=== PATIENT | male | born 1955 | race African-American/Black ===

== ENCOUNTER 2017-11-09 13:56 | Inpatient (IN) | payer MEDICAID ==
[~2017-11-09] VITALS: Ht 335.3 cm; Wt 68.9 kg
[2017-11-09 14:40] LABS: CHLORIDE 98 mEq/L (98-107)
[2017-11-09 14:43] LABS: BASOPHILS % 0.8 % (0.0-2.0); EOSINOPHILS % 0.3 % (0.0-5.0); HEMOGLOBIN. 11.4 g/dL (14.0-18.0); LYMPHOCYTES % 48.4 % (20.0-50.0); MEAN CORPUSCULAR HEMOGLOBIN 36.7 pg (28.0-32.0); MEAN PLATELET VOLUME 9.8 fl (7.4-10.4); MONOCYTES % 10.3 % (2.0-8.0); NEUTROPHILS % 40.2 % (40.0-76.0); RED BLOOD CELL COUNT 3.12 mill/uL (4.7-6.1); RED CELL DISTRIBUTION WIDTH 13.4 % (11.6-14.6)
[2017-11-09 14:44] LABS: INR 1.7; PROTHROMBIN TIME 17.8 sec (9.4-11.6)
[2017-11-09 14:47] LABS: PLATELET 30 x1000/uL (130-400)
[2017-11-09 14:59] LABS: ETHANOL BLOOD 370 mg/dL
[2017-11-09 15:05] LABS: PLATELET ESTIMATE MARKEDLY DECREASED
[2017-11-09] MEDS ORDERED: SODIUM CHLORIDE 0.9% 1,000 ML IV SCH (18:05)
[2017-11-09] MEDS ORDERED: CLONIDINE 0.1MG TABLET PO PRN (18:15)
[2017-11-09] MEDS ORDERED: IPRATROPIUM/ALBUTEROL 0.5-3(2.5)MG/3ML NEB INH PRN (18:15)
[2017-11-09] MEDS ORDERED: DOCUSATE SODIUM 100MG CAPSULE PO PRN (18:15)
[2017-11-09] MEDS ORDERED: LORAZEPAM 0.5MG TABLET PO PRN (18:15)
[2017-11-09] MEDS ORDERED: ACETAMINOPHEN 325MG TABLET PO PRN (18:15)
[2017-11-09] MEDS ORDERED: ONDANSETRON HCL 4MG/2ML VIAL IV PRN (18:15)
[2017-11-09] MEDS ORDERED: DIPHENHYDRAMINE 50MG/ML VIAL IV PRN (18:15)
[2017-11-09] MEDS ORDERED: NITROGLYCERIN 0.4MG TABLET SL SL PRN (18:15)
[2017-11-09] MEDS ORDERED: GUAIFENESIN 200MG/10ML SUGAR FREE UDC PO PRN (18:15)
[2017-11-09] MEDS ORDERED: MAGNESIUM/ALUMINUM HYDROXIDE/SIMETHICONE 30ML UDC PO PRN (18:15)
[2017-11-09] MEDS ORDERED: MVI, ADULT NO.1 10 ML, FOLIC ACID 1 MG, THIAMINE HCL 100 MG in SODIUM CHLORIDE 0.9% 1,0... IV ONE ×4 (18:45)
[2017-11-09] MEDS ORDERED: KETOROLAC 15MG/ML VIAL IV PRN (19:30)
[2017-11-09 20:00] VITALS: BP 97/55
[2017-11-09 20:05] VITALS: BP 99/55
[2017-11-09] MEDS ORDERED: NA PHOS,M-B/NA PHOS,DI-BA ENEMA 118ML PR PRN (21:00)
[2017-11-09] MEDS: FAMOTIDINE 20MG TABLET PO SCH (23:03)
[2017-11-10] VITALS (7 sets, daily range): BP systolic 105–154; BP diastolic 57–79
[2017-11-10] MEDS: SODIUM CHLORIDE 0.9% 1,000 ML IV SCH ×2 (05:23→15:00)
[2017-11-10 07:17] LABS: CREATINE KINASE 186 IU/L (39-308)
[2017-11-10 07:18] LABS: CREATINE KINASE MB FRACTION 1.8 ng/mL (0.5-3.6)
[2017-11-10] MEDS: FAMOTIDINE 20MG TABLET PO SCH (09:02)
[2017-11-10] MEDS ORDERED: LACTULOSE 20G/30ML UDC PO SCH (14:00)
== END 2017-11-10 17:01 | disposition home or self-care (01) | DRG 204 ==
LOC: ER 13:58 → OBSVTOIN 16:17 → 8WST 16:17 → EDBEDREQ 16:18 → EDBEDREQTM 16:18 → ENRESERV 18:52
PROVIDERS: ADMIT Internal Medicine; ATTEND Internal Medicine
DX: R55 Syncope and collapse (principal); E43 Unspecified severe protein-calorie malnutrition; D61.818 Other pancytopenia; D68.9 Coagulation defect, unspecified; E87.1 Hypo-osmolality and hyponatremia; E83.51 Hypocalcemia; K74.60 Unspecified cirrhosis of liver; F10.129 Alcohol abuse with intoxication, unspecified; I10 Essential (primary) hypertension; S00.03XA Contusion of scalp, initial encounter; W18.39XA Other fall on same level, initial encounter; Y93.89 Activity, other specified; Y92.89 Other specified places as the place of occurrence of the external cause; Y99.8 Other external cause status; Z68.1 Body mass index [BMI] 19.9 or less, adult
CPT/HCPCS: 36415; 70450; 71045; 80053; 82550; 82553; 83036; 83880; 84484; 85025; 85610; 93005; 93970; 96374; 99285; C1893; G0378; G0482; J3411; J3490; J7030

== ENCOUNTER 2018-12-16 10:04 | Emergency (ER) | payer MEDICAID ==
[~2018-12-16] VITALS: Ht 180.3 cm; Wt 73.0 kg
[2018-12-16] MEDS ORDERED: SODIUM CHLORIDE 0.9% 1,000 ML IV ONE (10:22)
[2018-12-16] MEDS ORDERED: CHLORDIAZEPOXIDE 25MG CAPSULE PO ONE ×2 (10:30→16:15)
[2018-12-16 11:19] LABS: HEMATOCRIT. 38.8 % (42.0-52.0); HEMOGLOBIN. 12.9 g/dL (14.0-18.0); MEAN CORPUSCULAR HEMOGLOBIN 32.2 pg (28.0-32.0); MEAN CORPUSCULAR VOLUME 96.5 fL (80.0-94.0); MEAN PLATELET VOLUME 9.2 fl (7.4-10.4); RED BLOOD CELL COUNT 4.01 mill/uL (4.7-6.1); RED CELL DISTRIBUTION WIDTH 15.5 % (11.6-14.6)
[2018-12-16 11:21] LABS: CHLORIDE 99 mEq/L (98-107)
[2018-12-16 11:31] LABS: PLATELET 28 x1000/uL (130-400)
[2018-12-16 11:52] LABS: ETHANOL BLOOD 341 mg/dL
[2018-12-16 11:57] LABS: PLATELET ESTIMATE MARKEDLY DECREASED
[2018-12-16 17:45] VITALS: BP 105/78
== END 2018-12-16 17:45 | disposition home or self-care (01) ==
LOC: ER 10:04
DX: T51.0X1A Toxic effect of ethanol, accidental (unintentional), initial encounter (principal); R55 Syncope and collapse; G40.909 Epilepsy, unspecified, not intractable, without status epilepticus; I11.0 Hypertensive heart disease with heart failure; I50.9 Heart failure, unspecified; D69.6 Thrombocytopenia, unspecified; Y90.8 Blood alcohol level of 240 mg/100 ml or more; V18.0XXA Pedal cycle driver injured in noncollision transport accident in nontraffic accident, initial encounter; Y92.488 Other paved roadways as the place of occurrence of the external cause
CPT/HCPCS: 36415; 80053; 80320; 85025; 93005; 99284; J7030; G0480

== ENCOUNTER 2019-01-13 14:11 | Inpatient (IN) | payer MEDICAID ==
[~2019-01-13] VITALS: Ht 175.3 cm; Wt 55.1 kg
[2019-01-13] MEDS ORDERED: ASPI-1393 PO (14:23)
[2019-01-13] MEDS ORDERED: CARV3.1242 PO (14:26)
[2019-01-13] MEDS ORDERED: FURO20TA4 PO (14:26)
[2019-01-13] MEDS ORDERED: ATOR40TA70 PO (14:26)
[2019-01-13 15:22] LABS: BASOPHILS % 1.3 % (0.0-2.0); EOSINOPHILS % 0.6 % (0.0-5.0); HEMATOCRIT. 28.5 % (42.0-52.0); HEMOGLOBIN. 9.7 g/dL (14.0-18.0); LYMPHOCYTES % 39.9 % (20.0-50.0); MEAN CORPUSCULAR HEMOGLOBIN 33.5 pg (28.0-32.0); MEAN CORPUSCULAR VOLUME 98.7 fL (80.0-94.0); MEAN PLATELET VOLUME 8.5 fl (7.4-10.4); MONOCYTES % 13.6 % (2.0-8.0); NEUTROPHILS % 44.6 % (40.0-76.0); RED BLOOD CELL COUNT 2.88 mill/uL (4.7-6.1)
[2019-01-13 15:27] LABS: CHLORIDE 104 mEq/L (98-107)
[2019-01-13 15:29] LABS: PLATELET 47 x1000/uL (130-400)
[2019-01-13 15:31] LABS: ETHANOL BLOOD < 10 mg/dL
[2019-01-13 15:33] LABS: LDL CHOLESTEROL 41 mg/dL (5-100)
[2019-01-13 15:39] LABS: INR 1.5; PROTHROMBIN TIME 14.7 sec (9.6-11.0)
[2019-01-13 21:00] VITALS: BP 120/78
[2019-01-13 22:00] VITALS: BP 120/78
[2019-01-13] MEDS ORDERED: MECLIZINE 25MG TABLET PO PRN (22:15)
[2019-01-13] MEDS ORDERED: MAGNESIUM/ALUMINUM HYDROXIDE/SIMETHICONE 30ML UDC PO PRN (22:15)
[2019-01-13] MEDS ORDERED: GUAIFENESIN 200MG/10ML SUGAR FREE UDC PO PRN (22:15)
[2019-01-13] MEDS ORDERED: ACETAMINOPHEN 325MG TABLET PO PRN (22:15)
[2019-01-13] MEDS ORDERED: DIPHENHYDRAMINE 50MG/ML VIAL IV PRN (22:15)
[2019-01-13] MEDS ORDERED: ONDANSETRON HCL 4MG/2ML INJ IV PRN (22:15)
[2019-01-13] MEDS ORDERED: HYDROCODONE/ACETAMINOPHEN 5/325MG TABLET PO PRN (22:30)
[2019-01-13] MEDS ORDERED: DEXT 5%/0.45% NACL 1000ML 1,000 ML IV SCH (22:30)
[2019-01-14] VITALS (7 sets, daily range): BP systolic 76–112; BP diastolic 51–73
[2019-01-14] MEDS ORDERED: CLONIDINE 0.1MG TABLET PO PRN (00:45)
[2019-01-14] MEDS ORDERED: IBUPROFEN 400MG TABLET PO PRN (00:45)
[2019-01-14] MEDS ORDERED: LORAZEPAM 2MG/ML CPJ IV PRN (00:45)
[2019-01-14 07:23] LABS: HEMATOCRIT. 27.5 % (42.0-52.0); HEMOGLOBIN. 9.5 g/dL (14.0-18.0); MEAN CORPUSCULAR HEMOGLOBIN 33.6 pg (28.0-32.0); MEAN CORPUSCULAR VOLUME 97.7 fL (80.0-94.0); MEAN PLATELET VOLUME 8.9 fl (7.4-10.4); RED BLOOD CELL COUNT 2.81 mill/uL (4.7-6.1); RED CELL DISTRIBUTION WIDTH 21.7 % (11.6-14.6)
[2019-01-14 08:10] LABS: PLATELET 43 x1000/uL (130-400)
[2019-01-14 08:15] LABS: CHLORIDE 104 mEq/L (98-107)
[2019-01-14] MEDS: LOSARTAN POTASSIUM 25 MG TABLET PO SCH (08:19)
[2019-01-14] MEDS: LAMOTRIGINE 25MG TABLET PO SCH (08:32)
[2019-01-14] MEDS: THIAMINE HCL 100MG TABLET PO SCH (08:32)
[2019-01-14 10:03] LABS: PLATELET ESTIMATE MARKEDLY DECREASED
[2019-01-14] MEDS: FAMOTIDINE 20MG TABLET PO SCH (21:45)
[2019-01-15] VITALS: BP 94/59
[2019-01-15 04:00] VITALS: BP 111/74
[2019-01-15 08:00] VITALS: BP 111/72
[2019-01-15] MEDS: LAMOTRIGINE 25MG TABLET PO SCH (08:33)
[2019-01-15] MEDS: THIAMINE HCL 100MG TABLET PO SCH (08:33)
[2019-01-15] MEDS: LOSARTAN POTASSIUM 25 MG TABLET PO SCH (08:34)
[2019-01-15 12:00] VITALS: BP 99/58
[2019-01-15 16:00] VITALS: BP 98/70
[2019-01-15 20:00] VITALS: BP 93/65
[2019-01-15] MEDS: NEO/POLYMYX B SULF/DEXAMETH 0.1% OPHTH SUSP 5ML RIGHTEYE SCH (21:11)
[2019-01-15] MEDS: FAMOTIDINE 20MG TABLET PO SCH (21:11)
[2019-01-16] VITALS: BP 102/65
[2019-01-16 04:00] VITALS: BP 139/85
[2019-01-16] MEDS: NEO/POLYMYX B SULF/DEXAMETH 0.1% OPHTH SUSP 5ML RIGHTEYE SCH ×3 (05:38→21:23)
[2019-01-16 08:00] VITALS: BP 105/63
[2019-01-16] MEDS: LOSARTAN POTASSIUM 25 MG TABLET PO SCH (09:00)
[2019-01-16] MEDS: LAMOTRIGINE 25MG TABLET PO SCH (09:20)
[2019-01-16] MEDS: THIAMINE HCL 100MG TABLET PO SCH (09:20)
[2019-01-16 12:00] VITALS: BP 102/65
[2019-01-16 16:00] VITALS: BP 102/61
[2019-01-16 20:00] VITALS: BP 109/66
[2019-01-16] MEDS: FAMOTIDINE 20MG TABLET PO SCH (21:23)
[2019-01-17] VITALS (7 sets, daily range): BP systolic 86–116; BP diastolic 52–75
[2019-01-17] MEDS: NEO/POLYMYX B SULF/DEXAMETH 0.1% OPHTH SUSP 5ML RIGHTEYE SCH ×2 (05:36→14:27)
[2019-01-17] MEDS: LOSARTAN POTASSIUM 25 MG TABLET PO SCH (08:59)
[2019-01-17] MEDS: LAMOTRIGINE 25MG TABLET PO SCH (09:00)
[2019-01-17] MEDS: THIAMINE HCL 100MG TABLET PO SCH (09:00)
== END 2019-01-17 17:30 | DRG 48 ==
LOC: ER 14:11 → 5WST 17:56 → EDBEDREQ 18:03 → EDBEDREQTM 18:03 → ENRESERV 20:29 → UNDODISIN 01-17 15:25
PROVIDERS: ADMIT Internal Medicine; ATTEND Internal Medicine
DX: G90.8 Other disorders of autonomic nervous system (principal); D69.6 Thrombocytopenia, unspecified; I11.0 Hypertensive heart disease with heart failure; I50.9 Heart failure, unspecified; G40.909 Epilepsy, unspecified, not intractable, without status epilepticus; J44.9 Chronic obstructive pulmonary disease, unspecified; S00.83XA Contusion of other part of head, initial encounter; F10.20 Alcohol dependence, uncomplicated; W18.39XA Other fall on same level, initial encounter; Y93.89 Activity, other specified; Y92.89 Other specified places as the place of occurrence of the external cause; Y99.8 Other external cause status; E44.1 Mild protein-calorie malnutrition
CPT/HCPCS: 36415; 70486; 70551; 71045; 80320; 83721; 83735; 84484; 93005; 97162; 99285; G0480

== ENCOUNTER 2019-06-17 12:06 | Inpatient (IN) | payer MEDICAID ==
[~2019-06-17] VITALS: Ht 175.3 cm; Wt 54.9 kg
[~2019-06-17 12:06] MED LIST: ASPI-1497 PO; ATOR40TA70 PO; CARV3.1242 PO; FURO20TA4 PO
[2019-06-17] MEDS ORDERED: SODIUM CHLORIDE 0.9% 1000ML BAG (SEPSIS BOLUS) IV ONE (12:30)
[2019-06-17 13:17] LABS: CHLORIDE 100 mEq/L (98-107)
[2019-06-17 13:18] LABS: INR 1.5
[2019-06-17 13:20] LABS: BASOPHILS % 0.6 % (0.0-2.0); EOSINOPHILS % 0.4 % (0.0-5.0); HEMATOCRIT. 33.2 % (42.0-52.0); HEMOGLOBIN. 11.4 g/dL (14.0-18.0); LYMPHOCYTES % 21.8 % (20.0-50.0); MEAN CORPUSCULAR HEMOGLOBIN 34.4 pg (28.0-32.0); MEAN CORPUSCULAR VOLUME 99.9 fL (80.0-94.0); MEAN PLATELET VOLUME 8.3 fl (7.4-10.4); MONOCYTES % 13.2 % (2.0-8.0); RED BLOOD CELL COUNT 3.32 mill/uL (4.7-6.1); RED CELL DISTRIBUTION WIDTH 16.9 % (11.6-14.6)
[2019-06-17 13:24] LABS: ETHANOL BLOOD 209 mg/dL
[2019-06-17 13:32] LABS: PLATELET 45 x1000/uL (130-400)
[2019-06-17 13:48] LABS: PLATELET ESTIMATE MARKEDLY DECREASED
[2019-06-17] MEDS ORDERED: CEFTRIAXONE 1 G PREMIX 50 ML IV ONE (15:00)
[2019-06-17] MEDS ORDERED: LORAZEPAM 0.5MG TABLET PO PRN (15:45)
[2019-06-17] MEDS ORDERED: MVI, ADULT NO.1 10 ML, FOLIC ACID 1 MG, THIAMINE HCL 100 MG in SODIUM CHLORIDE 0.9% 1,0... IV ONE ×4 (15:45)
[2019-06-17] MEDS ORDERED: ONDANSETRON HCL 4MG/2ML INJ IV PRN (15:45)
[2019-06-17] MEDS ORDERED: ACETAMINOPHEN 325MG TABLET PO PRN (15:45)
[2019-06-17 18:18] LABS: CLARITY URINE CLEAR (CLEAR); COLOR URINE YELLOW (YELLOW); KETONES URINE NEGATIVE (NEGATIVE); LEUKOCYTE ESTERASE URINE NEGATIVE (NEGATIVE); NITRITE URINE NEGATIVE (NEGATIVE); OCCULT BLOOD URINE NEGATIVE (NEGATIVE); PROTEIN URINE NEGATIVE (NEGATIVE); SPECIFIC GRAVITY URINE 1.006 (1.005-1.030); UROBILINOGEN URINE 0.2 E.U./dL (0.2-1.0)
[2019-06-17] MEDS: SODIUM CHLORIDE 0.9% 1,000 ML IV SCH (18:18)
[2019-06-17 18:42] LABS: *AMPHETAMINES SCREEN URINE NEGATIVE (NEGATIVE); *BARBITURATES SCREEN URINE NEGATIVE (NEGATIVE); *BENZODIAZEPINES SCREEN URINE NEGATIVE (NEGATIVE); *COCAINE SCREEN URINE NEGATIVE (NEGATIVE); METHADONE URINE SCREEN NEGATIVE (NEGATIVE); OPIATES URINE SCREEN NEGATIVE (NEGATIVE)
[2019-06-17 18:43] LABS: PHENCYCLIDINE URINE SCREEN NEGATIVE (NEGATIVE)
[2019-06-17 18:50] LABS: CANNABINOID URINE SCREEN NEGATIVE (NEGATIVE)
[2019-06-17 22:40] VITALS: BP 138/77
[2019-06-17 23:15] VITALS: BP 138/77
[2019-06-18] VITALS: BP 133/79
[2019-06-18 04:00] VITALS: BP 140/93
[2019-06-18 07:04] LABS: HEMATOCRIT. 31.9 % (42.0-52.0); MEAN CORPUSCULAR HEMOGLOBIN 34.4 pg (28.0-32.0); MEAN CORPUSCULAR VOLUME 99.8 fL (80.0-94.0); MEAN PLATELET VOLUME 9.3 fl (7.4-10.4); RED BLOOD CELL COUNT 3.19 mill/uL (4.7-6.1); RED CELL DISTRIBUTION WIDTH 16.8 % (11.6-14.6)
[2019-06-18 07:05] LABS: CHLORIDE 104 mEq/L (98-107)
[2019-06-18 07:43] LABS: PLATELET 45 x1000/uL (130-400)
[2019-06-18 08:00] VITALS: BP 127/75
[2019-06-18] MEDS ORDERED: FOLIC ACID 1MG TABLET PO SCH (09:00)
[2019-06-18] MEDS ORDERED: MULTIVITAMINS,THER W-MINERALS TABLET PO SCH (09:00)
[2019-06-18] MEDS ORDERED: THIAMINE HCL 100MG TABLET PO SCH (09:00)
[2019-06-18 10:46] LABS: PLATELET ESTIMATE DECREASED
[2019-06-18] MEDS: SODIUM CHLORIDE 0.9% 1,000 ML IV SCH (11:45)
[2019-06-18 12:00] VITALS: BP 144/84
[2019-06-18] MEDS ORDERED: THIA100T72 PO (13:12)
[2019-06-18] MEDS ORDERED: FOLI-43 PO (13:12)
[2019-06-18] MEDS ORDERED: CHLO25CA10 MT (14:42)
[2019-06-18] MEDS ORDERED: CHLORDIAZEPOXIDE 25MG CAPSULE PO NR (14:45)
[2019-06-18 16:00] VITALS: BP 135/80
[2019-06-18 18:15] VITALS: BP 135/80
== END 2019-06-18 19:15 | disposition home or self-care (01) | DRG 720 ==
LOC: ER 12:06 → 5WST 14:58 → EDBEDREQSVC 15:03 → EDBEDREQTM 15:03 → EDBEDREQ 15:03 → ENRESERV 21:52
PROVIDERS: ADMIT Family Medicine Adult Medicine; ATTEND Family Medicine Adult Medicine
DX: A41.9 Sepsis, unspecified organism (principal); R65.21 Severe sepsis with septic shock; E43 Unspecified severe protein-calorie malnutrition; D61.818 Other pancytopenia; T51.8X1A Toxic effect of other alcohols, accidental (unintentional), initial encounter; R55 Syncope and collapse; F10.129 Alcohol abuse with intoxication, unspecified; I10 Essential (primary) hypertension; Y90.7 Blood alcohol level of 200-239 mg/100 ml; E87.1 Hypo-osmolality and hyponatremia; Z79.899 Other long term (current) drug therapy; Y92.89 Other specified places as the place of occurrence of the external cause
CPT/HCPCS: 36415; 71045; 80053; 80305; 80320; 81003; 82962; 83605; 83880; 84145; 84484; 85025; 93005; 96365; 97162; 99291; J0696; J3411; J3490; J7030; G0480

== ENCOUNTER 2019-06-27 13:06 | Emergency (ER) | payer MEDICAID ==
[~2019-06-27] VITALS: Ht 172.7 cm; Wt 70.0 kg
[~2019-06-27 13:06] MED LIST changes: +CHLO25CA10 MT; +FOLI-43 PO; +THIA100T72 PO
[2019-06-27 13:17] VITALS: BP 92/61
== END 2019-06-27 15:10 | disposition left against medical advice (07) ==
LOC: ER 13:20
DX: S01.81XA Laceration without foreign body of other part of head, initial encounter (principal); S05.41XA Penetrating wound of orbit with or without foreign body, right eye, initial encounter; F10.229 Alcohol dependence with intoxication, unspecified; J44.9 Chronic obstructive pulmonary disease, unspecified; K21.9 Gastro-esophageal reflux disease without esophagitis; I11.9 Hypertensive heart disease without heart failure; F17.290 Nicotine dependence, other tobacco product, uncomplicated; G40.909 Epilepsy, unspecified, not intractable, without status epilepticus; R55 Syncope and collapse; Z87.09 Personal history of other diseases of the respiratory system; Z79.899 Other long term (current) drug therapy; Y90.9 Presence of alcohol in blood, level not specified; V19.88XA Pedal cyclist (driver) (passenger) injured in other specified transport accidents, initial encounter; Y93.89 Activity, other specified; Y92.89 Other specified places as the place of occurrence of the external cause; Y99.8 Other external cause status
CPT/HCPCS: 71045; 93005; 99283; 99406

== ENCOUNTER 2019-10-17 06:48 | Inpatient (IN) | payer MEDICAID ==
[~2019-10-17] VITALS: Ht 170.2 cm; Wt 59.2 kg
[2019-10-17] VITALS (22 sets, daily range): BP systolic 66–131; BP diastolic 29–91
[2019-10-17] MEDS ORDERED: SODIUM CHLORIDE 0.9% 1,000 ML IV ONE (07:05)
[2019-10-17] MEDS ORDERED: LORAZEPAM 2MG/ML CPJ IV ONE ×3 (07:15→08:30)
[2019-10-17] MEDS ORDERED: LEVETIRACETAM 1000MG/100ML 100 ML IV ONE (07:15)
[2019-10-17 07:30] LABS: BASOPHILS % 0.8 % (0.0-2.0); EOSINOPHILS % 0.1 % (0.0-5.0); HEMATOCRIT. 38.3 % (42.0-52.0); LYMPHOCYTES % 33.4 % (20.0-50.0); MEAN CORPUSCULAR HEMOGLOBIN 34.7 pg (28.0-32.0); MEAN CORPUSCULAR VOLUME 101.8 fL (80.0-94.0); MEAN PLATELET VOLUME 8.4 fl (7.4-10.4); MONOCYTES % 14.4 % (2.0-8.0); NEUTROPHILS % 51.3 % (40.0-76.0); RED BLOOD CELL COUNT 3.76 mill/uL (4.7-6.1); RED CELL DISTRIBUTION WIDTH 13.9 % (11.6-14.6)
[2019-10-17] MEDS ORDERED: ACETAMINOPHEN 650MG SUPP PR ONE (07:30)
[2019-10-17] MEDS ORDERED: SODIUM CHLORIDE 0.9% 1000ML BAG (SEPSIS BOLUS) IV ONE (07:30)
[2019-10-17 07:37] LABS: CHLORIDE 96 mEq/L (98-107)
[2019-10-17 07:42] LABS: ETHANOL BLOOD < 10 mg/dL
[2019-10-17 07:46] LABS: CREATINE KINASE 123 IU/L (39-308)
[2019-10-17 07:57] LABS: PLATELET 41 x1000/uL (130-400); PLATELET ESTIMATE MARKEDLY DECREASED
[2019-10-17] MEDS ORDERED: LORAZEPAM 2MG/ML CPJ ONE (08:36)
[2019-10-17] MEDS ORDERED: NICARDIPINE 100 MG in SODIUM CHLORIDE 0.9% 60 ML IV PRN ×2 (10:00→10:30)
[2019-10-17] MEDS ORDERED: DEXT 5%/0.45% NACL 1000ML 1,000 ML IV SCH (10:06)
[2019-10-17] MEDS ORDERED: GUAIFENESIN 200MG/10ML SUGAR FREE UDC PO PRN (10:15)
[2019-10-17] MEDS ORDERED: MAGNESIUM/ALUMINUM HYDROXIDE/SIMETHICONE 30ML UDC PO PRN (10:15)
[2019-10-17] MEDS ORDERED: NA PHOS,M-B/NA PHOS,DI-BA ENEMA 118ML PR PRN (10:15)
[2019-10-17] MEDS ORDERED: HYDROCODONE/ACETAMINOPHEN 5/325MG TABLET PO PRN (10:15)
[2019-10-17] MEDS ORDERED: IPRATROPIUM/ALBUTEROL 0.5-3(2.5)MG/3ML NEB NEB PRN (10:15)
[2019-10-17] MEDS ORDERED: LORAZEPAM 2MG/ML CPJ IV PRN ×2 (10:15→18:00)
[2019-10-17] MEDS ORDERED: CLONIDINE 0.1MG TABLET PO PRN (10:15)
[2019-10-17] MEDS ORDERED: DOCUSATE SODIUM 100MG CAPSULE PO PRN (10:15)
[2019-10-17 10:47] LABS: INR 1.3; PARTIAL THROMBOPLASTIN TIME 28.5 sec (23.4-31.0); PROTHROMBIN TIME 14.4 sec (9.6-11.0)
[2019-10-17 11:20] LABS: CHLORIDE 100 mEq/L (98-107)
[2019-10-17] MEDS: DEXT 5%/LACTATED RINGERS 1,000 ML IV SCH ×2 (13:19→21:06)
[2019-10-17] MEDS ORDERED: CEFTRIAXONE 1 G PREMIX 50 ML IV SCH (16:30)
[2019-10-17] MEDS ORDERED: DIAZEPAM 5 MG/ML 2ML CPJ IV NR (17:45)
[2019-10-17] MEDS ORDERED: LEVETIRACETAM 1,000 MG in SODIUM CHLORIDE 0.9% 100 ML IV SCH (18:00)
[2019-10-17 18:30] LABS: CLARITY URINE CLEAR (CLEAR); COLOR URINE DARK YELLOW (YELLOW); KETONES URINE NEGATIVE (NEGATIVE); LEUKOCYTE ESTERASE URINE NEGATIVE (NEGATIVE); NITRITE URINE NEGATIVE (NEGATIVE); OCCULT BLOOD URINE NEGATIVE (NEGATIVE); PROTEIN URINE TRACE (NEGATIVE); SPECIFIC GRAVITY URINE 1.019 (1.005-1.030)
[2019-10-17] MEDS ORDERED: LEVETIRACETAM 1000MG/100ML 100 ML IV SCH (18:30)
[2019-10-17] MEDS ORDERED: THIAMINE HCL 100 MG in SODIUM CHLORIDE 0.9% 49 ML IV ONE (19:30)
[2019-10-17] MEDS: LEVETIRACETAM 1,000 MG in SODIUM CHLORIDE 0.9% 100 ML IV SCH (19:55)
[2019-10-17] MEDS: THIAMINE HCL 100MG TABLET PO SCH (20:00)
[2019-10-17] MEDS ORDERED: LEVETIRACETAM 500MG PREMIX 100 ML IV SCH (21:00)
[2019-10-17] MEDS: PHENYTOIN SODIUM 100MG/2ML VIAL IV SCH (21:07)
[2019-10-17] MEDS: CEFTRIAXONE 1,000 MG in DEXTROSE 5% WATER 50 ML IV SCH (23:02)
[2019-10-17] MEDS: MORPHINE SULFATE 2 MG/ML CPJ (NOT FOR IM USE) IV PRN (23:50)
[2019-10-18] VITALS (67 sets, daily range): BP systolic 100–143; BP diastolic 57–97
[2019-10-18] MEDS: MORPHINE SULFATE 2 MG/ML CPJ (NOT FOR IM USE) IV PRN ×7 (03:21→20:03)
[2019-10-18] MEDS: PHENYTOIN SODIUM 100MG/2ML VIAL IV SCH ×3 (05:14→21:31)
[2019-10-18] MEDS ORDERED: MORPHINE SULFATE 2 MG/ML CPJ (NOT FOR IM USE) IV SCH (05:45)
[2019-10-18 06:17] LABS: BASOPHILS % 0.4 % (0.0-2.0); HEMATOCRIT. 33.8 % (42.0-52.0); HEMOGLOBIN. 11.8 g/dL (14.0-18.0); LYMPHOCYTES % 20.4 % (20.0-50.0); MEAN CORPUSCULAR HEMOGLOBIN 35.2 pg (28.0-32.0); MEAN CORPUSCULAR VOLUME 101.2 fL (80.0-94.0); MEAN PLATELET VOLUME 7.7 fl (7.4-10.4); MONOCYTES % 13.9 % (2.0-8.0); NEUTROPHILS % 65.3 % (40.0-76.0); PLATELET 96 x1000/uL (130-400); RED BLOOD CELL COUNT 3.34 mill/uL (4.7-6.1); RED CELL DISTRIBUTION WIDTH 13.8 % (11.6-14.6)
[2019-10-18 06:25] LABS: CHLORIDE 102 mEq/L (98-107)
[2019-10-18 06:37] LABS: LDL CHOLESTEROL 32 mg/dL (5-100)
[2019-10-18 06:38] LABS: HDL CHOLESTEROL 36 mg/dL (40-59); T4 FREE 1.35 ng/dL (0.76-1.46)
[2019-10-18] MEDS: THIAMINE HCL 100MG TABLET PO SCH (08:38)
[2019-10-18] MEDS: LEVETIRACETAM 1,000 MG in SODIUM CHLORIDE 0.9% 100 ML IV SCH ×2 (08:38→20:53)
[2019-10-18] MEDS: DEXT 5%/LACTATED RINGERS 1,000 ML IV SCH (11:50)
[2019-10-18 14:36] LABS: *BENZODIAZEPINES SCREEN URINE NEGATIVE (NEGATIVE); *COCAINE SCREEN URINE NEGATIVE (NEGATIVE)
[2019-10-18 14:37] LABS: *AMPHETAMINES SCREEN URINE NEGATIVE (NEGATIVE); *BARBITURATES SCREEN URINE NEGATIVE (NEGATIVE); CANNABINOID URINE SCREEN NEGATIVE (NEGATIVE); METHADONE URINE SCREEN NEGATIVE (NEGATIVE); OPIATES URINE SCREEN NEGATIVE (NEGATIVE); PHENCYCLIDINE URINE SCREEN NEGATIVE (NEGATIVE)
[2019-10-18] MEDS ORDERED: POTASSIUM CHLORIDE INJ 40 MEQ in DEXT 5% WATER 250 ML IV SCH (15:00)
[2019-10-18] MEDS ORDERED: LEVE1000 MT (16:16)
[2019-10-18] MEDS ORDERED: LISI2.5T47 MT (16:17)
[2019-10-18] MEDS ORDERED: FERR-71 MT (16:18)
[2019-10-18] MEDS ORDERED: FAMO40TA7 PO (16:18)
[2019-10-18] MEDS: CEFTRIAXONE 1,000 MG in DEXTROSE 5% WATER 50 ML IV SCH (19:57)
[2019-10-19] VITALS (45 sets, daily range): BP systolic 92–147; BP diastolic 40–103
[2019-10-19] MEDS: MORPHINE SULFATE 2 MG/ML CPJ (NOT FOR IM USE) IV PRN ×4 (00:40→16:46)
[2019-10-19 05:12] LABS: HEMOGLOBIN. 11.5 g/dL (14.0-18.0); MEAN CORPUSCULAR HEMOGLOBIN 34.6 pg (28.0-32.0); MEAN CORPUSCULAR VOLUME 102.1 fL (80.0-94.0); PLATELET 80 x1000/uL (130-400); RED BLOOD CELL COUNT 3.33 mill/uL (4.7-6.1); RED CELL DISTRIBUTION WIDTH 14.3 % (11.6-14.6)
[2019-10-19 05:19] LABS: CHLORIDE 105 mEq/L (98-107)
[2019-10-19] MEDS: PHENYTOIN SODIUM 100MG/2ML VIAL IV SCH ×2 (05:19→14:04)
[2019-10-19] MEDS: LEVETIRACETAM 1,000 MG in SODIUM CHLORIDE 0.9% 100 ML IV SCH (08:52)
[2019-10-19] MEDS: THIAMINE HCL 100MG TABLET PO SCH (09:32)
[2019-10-19 09:42] LABS: BG BASE EXCESS 5.2 mmol/L (-2.0-2.0); BG CARBOXYHEMOGLOBIN 0.1 % (0.5-1.5); BG FRACTION INSPIRED OXYGEN 28; BG METHEMOGLOBIN 0.1 % (0.0-1.5); BG OXYHEMOGLOBIN 97.8 % (94.0-97.0); BG PCO2 44.8 mmHg (35.0-45.0); BG PH 7.443 (7.350-7.450); BG PO2 113.3 mmHg (75.0-100.0); BG SAMPLE SITE RIGHT BRACHIAL; BG TOTAL HEMOGLOBIN 10.5 g/dL (12.0-18.0); BG VENT MODE NASAL CANNULA
[2019-10-19 14:01] LABS: PLATELET ESTIMATE DECREASED
[2019-10-19] MEDS: DEXT 5%/LACTATED RINGERS 1,000 ML IV SCH (14:04)
[2019-10-19] MEDS: CEFTRIAXONE 1,000 MG in DEXTROSE 5% WATER 50 ML IV SCH (19:59)
[2019-10-19] MEDS: LEVETIRACETAM 500MG/5ML CUP PO SCH (20:10)
[2019-10-19] MEDS ORDERED: LEVETIRACETAM 500MG/5ML CUP PO SCH (21:00)
[2019-10-19] MEDS: PHENYTOIN SODIUM EXTENDED 100MG CAPSULE PO SCH (21:23)
[2019-10-20] VITALS (12 sets, daily range): BP systolic 87–138; BP diastolic 44–92
[2019-10-20] MEDS: ONDANSETRON HCL 4MG/2ML INJ IV PRN (00:27)
[2019-10-20] MEDS: MORPHINE SULFATE 2 MG/ML CPJ (NOT FOR IM USE) IV PRN ×4 (00:29→22:37)
[2019-10-20] MEDS: DIPHENHYDRAMINE 50MG/ML VIAL IV PRN ×2 (05:09→17:20)
[2019-10-20] MEDS: PHENYTOIN SODIUM EXTENDED 100MG CAPSULE PO SCH (05:43)
[2019-10-20 07:52] LABS: HEMATOCRIT. 32.9 % (42.0-52.0); HEMOGLOBIN. 11.4 g/dL (14.0-18.0); MEAN CORPUSCULAR HEMOGLOBIN 35.2 pg (28.0-32.0); MEAN CORPUSCULAR VOLUME 101.7 fL (80.0-94.0); MEAN PLATELET VOLUME 8.6 fl (7.4-10.4); PLATELET 70 x1000/uL (130-400); RED BLOOD CELL COUNT 3.24 mill/uL (4.7-6.1)
[2019-10-20 08:05] LABS: CHLORIDE 104 mEq/L (98-107)
[2019-10-20] MEDS: THIAMINE HCL 100MG TABLET PO SCH (09:02)
[2019-10-20] MEDS: LEVETIRACETAM 500MG/5ML CUP PO SCH ×2 (09:02→22:13)
[2019-10-20] MEDS: CLONAZEPAM 0.5MG TABLET PO SCH ×3 (10:35→22:12)
[2019-10-20 10:40] LABS: PLATELET ESTIMATE DECREASED
[2019-10-20] MEDS ORDERED: PHENYTOIN 100 MG/4 ML UDC PO SCH (14:00)
[2019-10-20] MEDS: DEXT 5%/LACTATED RINGERS 1,000 ML IV SCH (20:25)
[2019-10-20] MEDS: CEFTRIAXONE 1,000 MG in DEXTROSE 5% WATER 50 ML IV SCH (22:12)
[2019-10-20] MEDS: ACETAMINOPHEN 325MG TABLET PO PRN (22:17)
[2019-10-21] VITALS (35 sets, daily range): BP systolic 39–186; BP diastolic 18–125
[2019-10-21] MEDS: FOLIC ACID 1 MG, MVI, ADULT NO.1 10 ML in DEXTROSE 5% WATER 1,000 ML IV SCH ×6 (00:08→20:24)
[2019-10-21] MEDS: DIPHENHYDRAMINE 50MG/ML VIAL IV PRN (00:26)
[2019-10-21] MEDS: ONDANSETRON HCL 4MG/2ML INJ IV PRN (00:26)
[2019-10-21] MEDS ORDERED: DIGOXIN 500MCG/2ML AMP IV SCH (03:30)
[2019-10-21] MEDS: CLONAZEPAM 0.5MG TABLET PO SCH (05:43)
[2019-10-21 06:29] LABS: HEMATOCRIT. 33.2 % (42.0-52.0); HEMOGLOBIN. 11.5 g/dL (14.0-18.0); MEAN CORPUSCULAR HEMOGLOBIN 35.4 pg (28.0-32.0); MEAN CORPUSCULAR VOLUME 102.2 fL (80.0-94.0); MEAN PLATELET VOLUME 8.8 fl (7.4-10.4); PLATELET 59 x1000/uL (130-400); RED BLOOD CELL COUNT 3.25 mill/uL (4.7-6.1); RED CELL DISTRIBUTION WIDTH 14.2 % (11.6-14.6)
[2019-10-21 06:55] LABS: CHLORIDE 105 mEq/L (98-107)
[2019-10-21] MEDS: ACETAMINOPHEN 650MG SUPP PR SCH ×2 (08:43→12:26)
[2019-10-21] MEDS: THIAMINE HCL 100MG TABLET PO SCH (09:00)
[2019-10-21] MEDS: LEVETIRACETAM 500MG/5ML CUP PO SCH ×2 (09:00→20:23)
[2019-10-21] MEDS ORDERED: LORAZEPAM 2MG/ML CPJ IV NR (09:00)
[2019-10-21] MEDS: PHENYTOIN 100 MG/4 ML UDC PO SCH ×2 (09:00→17:24)
[2019-10-21] MEDS ORDERED: AMIODARONE HCL 900 MG in DEXT 5% WATER 482 ML IV SCH (11:00)
[2019-10-21] MEDS ORDERED: AMIODARONE HCL 300 MG in DEXT 5% WATER 100 ML IV SCH (11:00)
[2019-10-21 11:13] LABS: PLATELET ESTIMATE DECREASED
[2019-10-21] MEDS ORDERED: ACETAMINOPHEN 650MG SUPP PR PRN (12:30)
[2019-10-21] MEDS: CLONAZEPAM 0.5MG TABLET NG SCH ×2 (15:57→20:24)
[2019-10-21] MEDS: DEXT 5%/LACTATED RINGERS 1,000 ML IV SCH (17:28)
[2019-10-21] MEDS: MORPHINE SULFATE 2 MG/ML CPJ (NOT FOR IM USE) IV PRN (20:09)
[2019-10-21] MEDS: CEFTRIAXONE 1 G PREMIX 50 ML IV SCH (20:23)
[2019-10-21] MEDS: ACETAMINOPHEN 325MG TABLET PO PRN (20:23)
[2019-10-21] MEDS ORDERED: SODIUM CHLORIDE 0.9% 500 ML IV ONE (21:45)
[2019-10-21] MEDS ORDERED: SODIUM CHLORIDE 0.9% 500 ML IV NR (22:00)
[2019-10-21] MEDS ORDERED: PHENYLEPHRINE 10 MG in DEXT 5% WATER 249 ML IV PRN (23:30)
[2019-10-22] VITALS (100 sets, daily range): BP systolic 55–158; BP diastolic 27–118
[2019-10-22] MEDS ORDERED: PHENYTOIN SODIUM 500 MG in SODIUM CHLORIDE 0.9% 50 ML IV SCH ×2
[2019-10-22] MEDS: ACETAMINOPHEN 325MG TABLET PO PRN (01:13)
[2019-10-22] MEDS ORDERED: PHENYLEPHRINE 40 MG in DEXT 5% WATER 246 ML IV PRN (03:00)
[2019-10-22] MEDS: DEXT 5%/LACTATED RINGERS 1,000 ML IV SCH ×2 (03:50→16:30)
[2019-10-22] MEDS: CLONAZEPAM 0.5MG TABLET NG SCH ×3 (04:43→22:03)
[2019-10-22 07:48] LABS: HEMATOCRIT. 34.5 % (42.0-52.0); HEMOGLOBIN. 11.7 g/dL (14.0-18.0); MEAN CORPUSCULAR HEMOGLOBIN 35.4 pg (28.0-32.0); MEAN CORPUSCULAR VOLUME 104.4 fL (80.0-94.0); MEAN PLATELET VOLUME 9.5 fl (7.4-10.4)
[2019-10-22 08:01] LABS: CHLORIDE 101 mEq/L (98-107)
[2019-10-22 08:26] LABS: PLATELET 49 x1000/uL (130-400)
[2019-10-22] MEDS: PHENYTOIN 100 MG/4 ML UDC PO SCH ×2 (08:54→16:30)
[2019-10-22] MEDS: THIAMINE HCL 100MG TABLET PO SCH (08:54)
[2019-10-22] MEDS: LEVETIRACETAM 500MG/5ML CUP PO SCH ×2 (08:54→20:39)
[2019-10-22 11:55] LABS: ATYPICAL LYMPHOCYTES 1; NUCLEATED RED BLOOD CELLS 1 /100 WBC; PLATELET ESTIMATE MARKEDLY DECREASED
[2019-10-22] MEDS ORDERED: LORAZEPAM 2MG/ML CPJ IV ONE (12:00)
[2019-10-22 13:48] LABS: BG BASE EXCESS 0.8 mmol/L (-2.0-2.0); BG CARBOXYHEMOGLOBIN 0.4 % (0.5-1.5); BG DEOXYHEMOGLOBIN 4.4 % (0.0-5.0); BG FRACTION INSPIRED OXYGEN 50; BG METHEMOGLOBIN 0.4 % (0.0-1.5); BG OXYGEN SATURATION 95.6 % (92.0-98.5); BG OXYHEMOGLOBIN 94.8 % (94.0-97.0); BG PCO2 43.7 mmHg (35.0-45.0); BG PH 7.392 (7.350-7.450); BG PO2 85.6 mmHg (75.0-100.0); BG SAMPLE SITE RIGHT RADIAL; BG TIDAL VOLUME(mL) 500 mL; BG TOTAL HEMOGLOBIN 13.2 g/dL (12.0-18.0); BG VENT MODE VENT - A/C; BG VENT RATE 14 set
[2019-10-22] MEDS: PANTOPRAZOLE SODIUM 40 MG/VIAL IV SCH (14:35)
[2019-10-22] MEDS: AMIODARONE HCL 200 MG TABLET NG SCH ×2 (14:36→20:39)
[2019-10-22] MEDS: PROPOFOL 10MG/ML 100ML 100 ML IV PRN (17:40)
[2019-10-22] MEDS: CEFTRIAXONE 1 G PREMIX 50 ML IV SCH (20:39)
[2019-10-22] MEDS: FOLIC ACID 1 MG, MVI, ADULT NO.1 10 ML in DEXTROSE 5% WATER 1,000 ML IV SCH ×3 (20:39)
[2019-10-22] MEDS: IPRATROPIUM BROMIDE (0.02%) 0.5MG/2.5ML NEB HHN SCH (20:45)
[2019-10-22] MEDS: PHENYLEPHRINE 40 MG in DEXT 5% WATER 246 ML IV PRN (23:57)
[2019-10-23] VITALS (94 sets, daily range): BP systolic 72–128; BP diastolic 55–90
[2019-10-23] MEDS: DEXT 5%/LACTATED RINGERS 1,000 ML IV SCH (00:59)
[2019-10-23] MEDS: ACETAMINOPHEN 325MG TABLET PO PRN (01:14)
[2019-10-23] MEDS: IPRATROPIUM BROMIDE (0.02%) 0.5MG/2.5ML NEB HHN SCH ×4 (01:55→21:11)
[2019-10-23] MEDS: CLONAZEPAM 0.5MG TABLET NG SCH ×3 (05:49→21:45)
[2019-10-23] MEDS: PROPOFOL 10MG/ML 100ML 100 ML IV PRN (05:50)
[2019-10-23 06:18] LABS: CHLORIDE 97 mEq/L (98-107)
[2019-10-23 06:19] LABS: HEMATOCRIT. 36.8 % (42.0-52.0); HEMOGLOBIN. 12.3 g/dL (14.0-18.0); MEAN CORPUSCULAR HEMOGLOBIN 35.1 pg (28.0-32.0); MEAN PLATELET VOLUME 10.3 fl (7.4-10.4); RED CELL DISTRIBUTION WIDTH 14.2 % (11.6-14.6)
[2019-10-23] MEDS: PHENYLEPHRINE 40 MG in DEXT 5% WATER 246 ML IV PRN ×3 (06:30→18:32)
[2019-10-23 06:50] LABS: PLATELET 40 x1000/uL (130-400)
[2019-10-23] MEDS ORDERED: KCL 20MEQ/100ML PREMIX 100 ML IV ONE (08:00)
[2019-10-23] MEDS: THIAMINE HCL 100MG TABLET PO SCH (08:48)
[2019-10-23] MEDS: LEVETIRACETAM 500MG/5ML CUP PO SCH ×2 (08:48→20:10)
[2019-10-23] MEDS: PHENYTOIN 100 MG/4 ML UDC PO SCH ×2 (08:48→16:17)
[2019-10-23] MEDS: AMIODARONE HCL 200 MG TABLET NG SCH ×2 (08:48→20:10)
[2019-10-23] MEDS: PANTOPRAZOLE SODIUM 40 MG/VIAL IV SCH (08:48)
[2019-10-23] MEDS ORDERED: POTASSIUM CHLORIDE INJ 60 MEQ in DEXT 5% WATER 500 ML IV SCH (09:00)
[2019-10-23 09:01] LABS: BG BASE EXCESS -1.4 mmol/L (-2.0-2.0); BG DEOXYHEMOGLOBIN 3.5 % (0.0-5.0); BG FRACTION INSPIRED OXYGEN 60; BG HCO3 ACT 21.3 mmol/L (22.0-26.0); BG METHEMOGLOBIN 0.3 % (0.0-1.5); BG OXYGEN SATURATION 96.5 % (92.0-98.5); BG OXYHEMOGLOBIN 96.2 % (94.0-97.0); BG PCO2 30.1 mmHg (35.0-45.0); BG PH 7.468 (7.350-7.450); BG PO2 87.6 mmHg (75.0-100.0); BG SAMPLE SITE LEFT BRACHIAL; BG TIDAL VOLUME(mL) 500 mL; BG TOTAL HEMOGLOBIN 12.9 g/dL (12.0-18.0); BG VENT MODE VENT - A/C; BG VENT RATE 14 set
[2019-10-23 13:10] LABS: NUCLEATED RED BLOOD CELLS 3 /100 WBC
[2019-10-23 13:11] LABS: PLATELET ESTIMATE MARKEDLY DECREASED
[2019-10-23] MEDS ORDERED: PROPOFOL 10MG/ML 100ML 100 ML IV PRN (17:45)
[2019-10-23] MEDS: MORPHINE SULFATE 250 MG in DEXT 5% WATER 240 ML IV PRN (20:11)
[2019-10-23] MEDS: FOLIC ACID 1 MG, MVI, ADULT NO.1 10 ML in DEXTROSE 5% WATER 1,000 ML IV SCH ×3 (21:46)
[2019-10-24] VITALS (92 sets, daily range): BP systolic 81–121; BP diastolic 57–86
[2019-10-24] MEDS: IPRATROPIUM BROMIDE (0.02%) 0.5MG/2.5ML NEB HHN SCH ×3 (02:34→12:36)
[2019-10-24] MEDS: DEXT 5%/LACTATED RINGERS 1,000 ML IV SCH (04:56)
[2019-10-24] MEDS: CLONAZEPAM 0.5MG TABLET NG SCH ×3 (05:13→22:21)
[2019-10-24 06:19] LABS: HEMATOCRIT. 33.8 % (42.0-52.0); HEMOGLOBIN. 11.6 g/dL (14.0-18.0); MEAN CORPUSCULAR VOLUME 102.1 fL (80.0-94.0); MEAN PLATELET VOLUME 10.8 fl (7.4-10.4); RED BLOOD CELL COUNT 3.31 mill/uL (4.7-6.1); RED CELL DISTRIBUTION WIDTH 13.6 % (11.6-14.6)
[2019-10-24 06:31] LABS: CHLORIDE 94 mEq/L (98-107)
[2019-10-24] MEDS: MORPHINE SULFATE 250 MG in DEXT 5% WATER 240 ML IV PRN ×2 (07:05→16:37)
[2019-10-24] MEDS ORDERED: POTASSIUM CHLORIDE 20MEQ/PACKET NG NR (07:15)
[2019-10-24] MEDS: CARVEDILOL 3.125 MG TABLET NG SCH ×2 (08:14→21:00)
[2019-10-24] MEDS: PANTOPRAZOLE SODIUM 40 MG/VIAL IV SCH (08:16)
[2019-10-24] MEDS: THIAMINE HCL 100MG TABLET PO SCH (08:16)
[2019-10-24] MEDS: LEVETIRACETAM 500MG/5ML CUP PO SCH ×2 (08:16→21:00)
[2019-10-24] MEDS: PHENYTOIN 100 MG/4 ML UDC PO SCH ×2 (08:16→16:35)
[2019-10-24] MEDS: AMIODARONE HCL 200 MG TABLET NG SCH ×2 (08:40→21:00)
[2019-10-24] MEDS: ACETAMINOPHEN 325MG TABLET PO PRN ×2 (09:26→16:35)
[2019-10-24 11:47] LABS: NUCLEATED RED BLOOD CELLS 3 /100 WBC
[2019-10-24 11:48] LABS: PLATELET ESTIMATE MARKEDLY DECREASED
[2019-10-24 11:49] LABS: PLATELET 47 x1000/uL (130-400)
[2019-10-24] MEDS ORDERED: LORAZEPAM 2MG/ML CPJ IV PRN (15:15)
[2019-10-25] VITALS (37 sets, daily range): BP systolic 78–98; BP diastolic 41–64
[2019-10-25] MEDS: MORPHINE SULFATE 250 MG in DEXT 5% WATER 240 ML IV PRN ×3 (01:08→21:23)
[2019-10-25] MEDS: CLONAZEPAM 0.5MG TABLET NG SCH ×2 (06:00→13:23)
[2019-10-25] MEDS: CARVEDILOL 3.125 MG TABLET NG SCH ×2 (09:00→21:00)
[2019-10-25] MEDS: PHENYTOIN 100 MG/4 ML UDC PO SCH ×2 (09:01→16:12)
[2019-10-25] MEDS: LEVETIRACETAM 500MG/5ML CUP PO SCH ×2 (09:01→22:50)
[2019-10-25] MEDS: AMIODARONE HCL 200 MG TABLET NG SCH (09:01)
[2019-10-26] VITALS: BP 75/45
[2019-10-26] MEDS: AMIODARONE HCL 200 MG TABLET NG SCH ×2 (02:07→09:51)
[2019-10-26] MEDS: CLONAZEPAM 0.5MG TABLET NG SCH ×3 (02:07→13:06)
[2019-10-26 04:00] VITALS: BP 70/39
[2019-10-26 08:00] VITALS: BP 63/35
[2019-10-26] MEDS: CARVEDILOL 3.125 MG TABLET NG SCH (09:00)
[2019-10-26] MEDS: PHENYTOIN 100 MG/4 ML UDC PO SCH (09:51)
[2019-10-26] MEDS: LEVETIRACETAM 500MG/5ML CUP PO SCH (09:57)
[2019-10-26 12:00] VITALS: BP 57/31
[2019-10-26 16:00] VITALS: BP 60/24
== END 2019-10-26 17:45 | disposition expired | DRG 44 ==
LOC: ER 06:48 → EDBEDREQ 07:07 → MICUSO 09:02 → EDBEDREQ 09:52 → EDBEDREQTM 09:52 → EDBEDREQSVC 09:52 → ENRESERV 14:17 → CANRESERV 14:17 → EDBEDREQ 15:11 → ENRESERV 15:24 → 5EST 10-19 22:06 → 6EST 10-25 17:11
PROVIDERS: ADMIT Internal Medicine; ATTEND Internal Medicine
PROC: 30233R1 Transfusion of Nonautologous Platelets into Peripheral Vein, Percutaneous Approach (ICD-10-PCS; 2019-10-17)
PROC: 5A1945Z Respiratory Ventilation, 24-96 Consecutive Hours (ICD-10-PCS; principal; 2019-10-22)
PROC: 0BH17EZ Insertion of Endotracheal Airway into Trachea, Via Natural or Artificial Opening (ICD-10-PCS; 2019-10-22)
PROC: 02HV33Z Insertion of Infusion Device into Superior Vena Cava, Percutaneous Approach (ICD-10-PCS; 2019-10-23)
PROC: B548ZZA Ultrasonography of Superior Vena Cava, Guidance (ICD-10-PCS; 2019-10-23)
DX: I61.1 Nontraumatic intracerebral hemorrhage in hemisphere, cortical (principal); I21.4 Non-ST elevation (NSTEMI) myocardial infarction; J96.01 Acute respiratory failure with hypoxia; I50.42 Chronic combined systolic (congestive) and diastolic (congestive) heart failure; I11.0 Hypertensive heart disease with heart failure; D69.6 Thrombocytopenia, unspecified; E44.1 Mild protein-calorie malnutrition; I27.21 Secondary pulmonary arterial hypertension; I60.9 Nontraumatic subarachnoid hemorrhage, unspecified; K70.30 Alcoholic cirrhosis of liver without ascites; E78.5 Hyperlipidemia, unspecified; F10.10 Alcohol abuse, uncomplicated; Y90.9 Presence of alcohol in blood, level not specified; J93.9 Pneumothorax, unspecified; J44.9 Chronic obstructive pulmonary disease, unspecified; G40.509 Epileptic seizures related to external causes, not intractable, without status epilepticus; E87.6 Hypokalemia; Z66 Do not resuscitate; I25.10 Atherosclerotic heart disease of native coronary artery without angina pectoris; Z51.5 Encounter for palliative care; F16.90 Hallucinogen use, unspecified, uncomplicated; Z79.82 Long term (current) use of aspirin; Z79.899 Other long term (current) drug therapy; Z87.891 Personal history of nicotine dependence; Z78.1 Physical restraint status; Z86.73 Personal history of transient ischemic attack (TIA), and cerebral infarction without residual deficits; Z79.84 Long term (current) use of oral hypoglycemic drugs; Z68.20 Body mass index [BMI] 20.0-20.9, adult; Z03.818 Encounter for observation for suspected exposure to other biological agents ruled out
CPT/HCPCS: 36415; 36600; 71045; 76937; 80048; 80053; 80061; 80076; 80185; 80305; 80320; 81003; 82375; 82550; 82805; 82962; 83605; 83880; 84439; 84443; 84478; 84484; 85025; 86850; 86900; 86945; 87635; 93005; 93306; 99291; C1725; C9113; J0282; J0696; J1160; J1165; J1200; J1953; J2060; J2270; J2274; J2370; J2405; J2704; J3480; J3490; J7030; J7050; J7060; J7070; P9034; G0480; U0003-CS